=== PATIENT | female | born 1940 | race Two or more races ===

== ENCOUNTER 2017-12-13 11:57 | Inpatient (IN) | payer MEDICARE, OTHER ==
[~2017-12-13] VITALS: Ht 162.6 cm; Wt 66.2 kg
[2017-12-13] MEDS ORDERED: RISP1TAB7 PO (12:12)
[2017-12-13] MEDS ORDERED: VALS1TAB6 PO (12:12)
[2017-12-13] MEDS ORDERED: ALPR0.5T PO (12:12)
[2017-12-13 12:46] LABS: BASOPHILS % (AUTO) 0.6 % (0.0-2.0); EOSINOPHILS % (AUTO) 0.6 % (0.0-7.0); HEMATOCRIT 34.5 % (31.2-41.9); HEMOGLOBIN 11.8 g/dL (10.9-14.3); LYMPHOCYTES # (AUTO) 0.7 K/uL (20.0-40.0); LYMPHOCYTES % (AUTO) 15.8 % (20.5-51.5); MEAN CORPUSCULAR HEMOGLOBIN 32.2 uug (24.7-32.8); MEAN CORPUSCULAR HGB CONC 34 g/dL (32.3-35.6); MEAN CORPUSCULAR VOLUME 94.3 fL (75.5-95.3); MONOCYTES # (AUTO) 0.5 K/uL (2.0-10.0); NEUTROPHILS # (AUTO) 3.3 K/uL (1.8-8.9); PLATELET COUNT (AUTO) 87 K/uL (179-408); RED BLOOD CELL COUNT(AUTO) 3.66 MIL/uL (3.63-4.92); WHITE BLOOD COUNT (AUTO) 4.6 K/uL (3.8-11.8)
[2017-12-13 12:48] LABS: CARBON DIOXIDE 23 mmol/L (21-32); CHLORIDE 106 mmol/L (98-107); CREATININE 1.1 mg/dL (0.6-1.3); GLUCOSE 194 mg/dL (74-106); POTASSIUM 3.6 mmol/L (3.5-5.1); UREA NITROGEN, BLOOD 17 mg/dL (7-18)
[2017-12-13 12:50] LABS: ETHANOL < 3 MG/DL (0-0)
[2017-12-13 12:53] LABS: ACETAMINOPHEN < 2.0 ug/mL (10-30); ALANINE AMINOTRANSFERASE 37 U/L (14-59); ALKALINE PHOSPHATASE 65 U/L (50-136); ASPARTATE AMINOTRANSFERASE 44 U/L (15-37); BILIRUBIN,DIRECT 0.3 mg/dL (0.0-0.2); BILIRUBIN,TOTAL 1.1 mg/dL (0.2-1.0); TOTAL PROTEIN, SERUM 7.6 g/dL (6.4-8.2)
--- NOTE | 2017-12-13 13:02 | NUR ---
MSE COMPLETED, CALLED JUDY LOPEZ FOR [facility] EVAL. ETA 1-1 1/2 HRS
[2017-12-13 13:05] LABS: LYMPHOCYTES % (MANUAL) 15 % (20-40); MONOCYTES % (MANUAL) 11 % (2-10); NEUTROPHILS % (MANUAL) 74 % (42-75)
--- NOTE | 2017-12-13 16:15 | NUR ---
SBAR REPORT TO ZABRINA RN, BELONGINGS LIST DONE,ADMIT ORDER WRITTEN, PT'S DAUGHTER PRESENT.
--- NOTE | 2017-12-13 16:30 | NUR ---
Patient received from ER, ambulated to rest room independently. Daughters at bedside and reported detailed history of patient and current loss of 20 lbs due to emotional reaction to recent family trauma. Daughter also reports that she doesn't know if patient has been taking her medications, and is having verbal and visual hallucinations. Patient's blood pressure was recorded to be significantly elevated and Medical doctor contacted for BP medications.
[2017-12-13] MEDS ORDERED: CLONIDINE-TTS 1 PATCH TD SCH (17:00)
[2017-12-13] MEDS: AMLODIPINE 10 MG TABLET PO SCH (17:01)
[2017-12-13] MEDS ORDERED: TEMAZEPAM 7.5 MG CAPSULE PO PRN (17:30)
[2017-12-13] MEDS ORDERED: MAG HYDROX/AL HYDROX/SIMETH 30 ML LIQUID UDC PO PRN (17:30)
[2017-12-13] MEDS ORDERED: ACETAMINOPHEN 325 MG TABLET PO PRN (17:30)
[2017-12-13] MEDS ORDERED: MAGNESIUM HYDROXIDE 30 ML LIQUID UDC PO PRN (17:30)
[2017-12-13 18:55] VITALS: BP 136/79
--- NOTE | 2017-12-13 19:20 | NUR ---
RECEIVED PT AWAKE, ALERT, ORIENTEDX2. PT SHOWS NO SIGNS OF DISTRESS. PT PLEASANT WHEN APPROACHED. PT
--- NOTE | 2017-12-13 19:21 | NUR ---
RECEIVED PT AWAKE, ALERT, ORIENTEDX2.PT SHOWS NO SIGNS OF DISTRESS.PT PLEASANT WHEN APPROACHED. SITTER AT BEDSIDE. SAFETY AND COMFORT PROVIDED. WILL CONTINUE TO MONITOR.
[2017-12-13 20:00] VITALS: BP 146/74
[2017-12-13] MEDS: LORAZEPAM 0.5 MG TABLET PO PRN (21:15)
--- NOTE | 2017-12-14 06:08 | NUR ---
PT SLEPT 7 HOURS. PT SHOWS NO SIGNS OF DISTRESS.SITTER AT BEDSIDE. PT COOPERATIVE WITH CARE. PRESCRIBED MEDICATION GIVEN AND PT TOLERATED IT WELL. SAFETY AND COMFORT PROVIDED. WILL ENDORSE TO INCOMING NURSE FOR CONTINUITY OF CARE.
[2017-12-14 07:30] VITALS: BP 158/87
[2017-12-14] MEDS: AMLODIPINE 10 MG TABLET PO SCH (08:15)
--- NOTE | 2017-12-14 12:27 | NUR ---
Patient is currently living at home alone [[address] [place] [address]]. Per pt's daughter Valarie ([phone]) pt lives alone in her apartment, however, she and other family members live in the same apartment complex as the pt. Per Valarie, the pt has a caregiver that tends to her 3-4 hours a day everyday. Per Valarie, she would like pt to return home when ready for discharge. JOSE will collaborate with pt, family, and MD regarding appropriate dischare plans for this pt. JOSE will form a safe and proper discharge plan. Addendum: 12/14/17 at 1459 by LIZ GARCIA Initial Discharge Instructions
[2017-12-14] MEDS: risperiDONE 1 MG TABLET PO SCH ×2 (13:29→20:01)
[2017-12-14 14:43] VITALS: BP 128/74
[2017-12-14] MEDS: LORAZEPAM 0.5 MG TABLET PO PRN (16:43)
[2017-12-14 19:56] VITALS: BP 106/66
[2017-12-15] MEDS: LORAZEPAM 0.5 MG TABLET PO PRN ×2 (06:30→19:46)
--- NOTE | 2017-12-15 06:38 | NUR ---
Pt slightly agitated at this time, relaxation techniques implemented. Ativan PO administered as ordered. 1:1 sitter at bedside for safety.
--- NOTE | 2017-12-15 07:29 | NUR ---
patient sitting at bedside crying at this time. patient's daughter will be called. reorientation will be provided. no signs of agitation at this time. angolan speaking only. stable condition, no signs of distress. 1:1 sitter at bedside for safety. will continue to monitor.
[2017-12-15 07:32] VITALS: BP 123/78
[2017-12-15] MEDS: AMLODIPINE 10 MG TABLET PO SCH (08:15)
[2017-12-15] MEDS: risperiDONE 1 MG TABLET PO SCH ×2 (08:16→21:23)
[2017-12-15 12:22] VITALS: BP 99/60
[2017-12-15 15:47] VITALS: BP 135/75
--- NOTE | 2017-12-15 17:34 | NUR ---
Patient resting comfortably in bed at this time. Compliant with medications. Complained of stomach discomfort and right foot pain- managed with medications. stable condition, no signs of agitation, no delusions, no signs of paranoia. Ate 50% of lunch and 70% of dinner today. will continue to monitor. safety measures implemented.
--- NOTE | 2017-12-15 19:42 | NUR ---
pt appears to be restless at this time, looking for family members. relaxation techniques implemented. 1:1 sitter for safety. safe environment at all times. will closely monitor.
[2017-12-15 20:00] VITALS: BP 145/82
--- NOTE | 2017-12-16 06:44 | NUR ---
Pt slept 7 1/2 hours. Stable condition
--- NOTE | 2017-12-16 07:19 | NUR ---
patient slept well throughout the night. awake at this time. pacing around the room. no signs of agitation. continues to be confused. compliant with medications. 1:1 sitter at bedside. will monitor throughout shift. safety measures implemented.
[2017-12-16 08:08] VITALS: BP 125/76
[2017-12-16] MEDS: risperiDONE 1 MG TABLET PO SCH ×2 (08:10→20:31)
[2017-12-16] MEDS: AMLODIPINE 10 MG TABLET PO SCH (08:10)
--- NOTE | 2017-12-16 10:00 | NUR ---
patient's hold renewed to 5249 - [address] Arreola. Original copy signed, faxed to [facility], and placed in chart. Copies made, copy given to patient.
[2017-12-16 12:00] VITALS: BP 127/74
[2017-12-16 18:05] VITALS: BP 145/75
--- NOTE | 2017-12-16 18:42 | NUR ---
Per Patient's Daughter: patient continues to hallucinate. She believes people are going to take her from her room and bring her into a locked unit. Patient also verbalized that she spoke with a Greek female last night but that was not true. No signs of agitation but has slight moments of hallucinations. Compliant with medications. Eats breakfast, lunch, dinner, and tolerating well. 1:1 sitter at bedside. Safety measures implemented.
[2017-12-16 19:00] VITALS: BP 118/80
--- NOTE | 2017-12-16 20:00 | NUR ---
RECEIVED PATIENT AWAKE IN BED. ALERT TO SELF. CHINESE SPEAKING. NO S/S OF PAIN OR DISCOMFORT. NO FACIAL GRIMACE NOTED. VS WNL. SITTER AT BEDSIDE FOR SAFETY. PROVIDED SAFE AND THERAPEUTIC ENVIRONMENT. ALL NEEDS ATTENDED.WILL CONTINUE TO MONITOR AND ASSESS.
[2017-12-17] MEDS: LORAZEPAM 0.5 MG TABLET PO PRN (00:12)
--- NOTE | 2017-12-17 00:15 | NUR ---
PATIENT AWAKE IN ROOM. PATIENT IS ANXIOUS AND AGITATED. PATIENT GIVEN ATIVAN 0.5MG PO PRN FOR ANXIETY. SITTER AT BEDSIDE. WILL CONTINUE TO MONITOR.
--- NOTE | 2017-12-17 06:14 | NUR ---
PATIENT ASLEEP IN BED. SLEPT ONLY 2 HOURS. SITTER AT BEDSIDE. WILL CONTINUE TO MONITOR AND ASSESS.
--- NOTE | 2017-12-17 08:04 | NUR ---
PATIENT AWAKE AT THIS TIME. RESTING IN BED. NO SIGNS OF AGITATION. 1:1 SITTER AT BEDSIDE. ONLY SLEPT 2 HOURS THROUGH THE NIGHT. SAFETY MEASURES IMPLEMENTED.
[2017-12-17] MEDS: risperiDONE 1 MG TABLET PO SCH ×2 (08:38→20:32)
[2017-12-17] MEDS: AMLODIPINE 10 MG TABLET PO SCH (08:38)
[2017-12-17 08:39] VITALS: BP 130/76
--- NOTE | 2017-12-17 15:30 | NUR ---
PATIENT TRANSFERRED TO [facility] UNIT. REPORT GIVEN TO CLIFF SOTO.
--- NOTE | 2017-12-17 15:40 | NUR ---
pt received to care. Pt's daughters are at bed side. Pt is calm and cooperative, no distress. vs are stable
[2017-12-17 17:09] VITALS: BP 125/74
[2017-12-17 20:34] VITALS: BP_SYST 100; BP_SYST 137; BP_DIAS 57; BP_DIAS 71
--- NOTE | 2017-12-18 06:46 | NUR ---
GPS/SHIP RIGGER APPRENTICE: REMAIN CALM AND COOPERATIVE. SLEPT 5 HRS THROUGH THE NIGHT. REQUESTED SLEEPING MEDICATION LAST NIGHT THEN CHANGE HER MIND. RESTORIL 7.5 MG WASTED WITH CHARGE NURSE. CONTINUE MONITORING FOR SAFETY.
[2017-12-18 07:30] VITALS: BP_SYST 119; BP_SYST 139; BP_DIAS 59; BP_DIAS 81
[2017-12-18] MEDS: risperiDONE 1 MG TABLET PO SCH (08:53)
[2017-12-18 08:54] VITALS: BP 139/81
[2017-12-18] MEDS: AMLODIPINE 10 MG TABLET PO SCH (08:54)
--- NOTE | 2017-12-18 12:41 | NUR ---
Discharge Note: Patient will be discharged back home with her daughters [[address] [place] [address]; [phone]] via private transportation at 1:30pm. Spoke with patient's daughter, Valarie ([phone]) who was at bedside. Dtr has agreed to provide transportation and is aware and agreeable with discharge plans. Patient is aware and agreeable with discharge plans. Patient will continue to follow-up with her Primary Care Physician, Dr. Elmer Castaneda [[address] [place] [address]; [phone]]. Patient will also follow-up with Dr. Martinez (Psychiatrist) in outpatient setting [[address] [address], [place] [address]; ] for medication management. Patient was provided with outpatient mental health resources to [facility] , [facility] , and the National Suicide Prevention Lifeline .
--- NOTE | 2017-12-18 14:01 | NUR ---
[address] Martinez, psychiatrist, Md talked with patient's daughter with discharged order -carried out. 1330 Discharged instruction given to daughter who is taking care with the patient regarding medications to continue at home , prescription given and daughter instructed to drop it to patient pharmacy- daughter verbalized understanding. 1345 discharged patient home with daughter via private car, patient fair condition denies SI/HI. no delusion. no hallucination noted.
--- NOTE | 2017-12-18 14:59 | NUR ---
Firearms Report: Budget Counselor completed and submitted [employer] Firearms Report on 12/18/17 for 5150 DTS certification.
[2017-12-18] MEDS ORDERED: BENZTROPINE MESYLATE 0.5 MG TABLET PO SCH (21:00)
== END 2017-12-18 13:45 | disposition home or self-care (01) | DRG 885 ==
LOC: ER 12:02 → GPSOV 15:58 → GPS 12-17 15:48
PROVIDERS: ADMIT Psychiatry & Neurology Psychiatry; ATTEND Internal Medicine
DX: F20.0 Paranoid schizophrenia (principal); F33.3 Major depressive disorder, recurrent, severe with psychotic symptoms; Z79.899 Other long term (current) drug therapy; I10 Essential (primary) hypertension; D69.6 Thrombocytopenia, unspecified
CPT/HCPCS: 36415; 85025; 93005; A4663; G0480; G0480-TC